=== PATIENT | female | born 1960 | race Caucasian/White ===

== ENCOUNTER 2018-01-24 08:00 | Inpatient (IN) ==
[2018-01-24] MEDS ORDERED: Ibuprofen 600 MG Tablet PO PRN (08:34)
[2018-01-24] MEDS: Docusate Sodium 100 MG Capsule PO SCH ×2 (12:06→21:00)
[2018-01-24 12:22] LABS: Hematocrit 24.7 % (35.0-46.0); Hemoglobin 7.9 gm/dL (11.6-15.3); Mean Corpuscular Hemoglobin 22.5 pg (27.0-34.0); Mean Corpuscular Volume 70.4 fL (80.0-100.0); Mean Platelet Volume 6.8 fL (7.0-11.0); Platelet Count 522 th/mm3 (150-450); Red Blood Count 3.51 mil/mm3 (4.00-5.30); Red Cell Distribution Width 20.6 % (11.6-17.2); White Blood Count 9.1 th/mm3 (4.0-11.0)
[2018-01-24] MEDS: Estrogens Conjugated Inj 25 MG Vial IV.PUSH SCH ×2 (15:22→18:29)
[2018-01-24] MEDS: Acetaminophen 325 MG Tablet PO PRN ×2 (15:31→19:57)
--- NOTE | 2018-01-24 17:34 | P.HPOB ---
History of Present Illness Primary Care Physician: UNKNOWN History of Present Illness: 57 yo WF here today For preoperative admission due to severe anemia with plans total laparoscopic hysterectomy, bilateral salpingo-oophorectomy, possible abdominal hysterectomy and cystoscopy on 01/25/2018 for anemia, AUB, fibroids. Other than fatigue patient is asymptomatic. No heavy active bleeding. - Inpatient Certification I certify that the inpatient services were ordered in accordance with Medicare regulations governing the order. This includes certification that hospital inpatient services are reasonable and necessary and in the case of services not specified as inpatient-only under 42 CFR 419.22(n), that they are appropriately provided as inpatient services in accordance to with the 2-midnight benchmark under 43 CFR 412.3(e) Estimated Total Length of Stay (Days): 2 Plans for Post Hospital Care: Home [facility] - History History Provided By: Patient - Tobacco History Second Hand Smoke Exposure: No Smoking Status: Former smoker - Alcohol History How Often Do You Have a Drink Containing Alcohol: Monthly or less - Substance Use History Substance History: No History of Abuse - Immunization History Hx Influenza Vaccine This Season: No Medications and Allergies Active Medications: Active Medications Acetaminophen (Tylenol) 650 mg PO UNSCH PRN PRN Reason: PRIOR TO BLOOD ADMINISTRATION Stop: 01/24/18 23:59 Last Admin: 01/24/18 15:31 Dose: 650 mg Diphenhydramine HCl (Benadryl) 25 mg PO UNSCH PRN PRN Reason: PRIOR TO BLOOD ADMINISTRATION Stop: 01/24/18 23:59 Last Admin: 01/24/18 15:30 Dose: 25 mg Docusate Sodium (Colace) 100 mg PO BID [facility] Last Admin: 01/24/18 12:06 Dose: 100 mg Lactated Ringer's (Lr 1000 Ml Inj) 1,000 mls @ 125 mls/hr IV.CONT .Q8H [facility] Last Admin: 01/24/18 12:05 Dose: 125 mls/hr Ibuprofen (Motrin) 600 mg PO Q6H PRN PRN Reason: Pain 1-10 And/Or Fever >101 F Medroxyprogesterone Acetate (Provera) 10 mg PO BID [facility] Last Admin: 01/24/18 12:06 Dose: 10 mg Ondansetron HCl (Zofran Odt) 4 mg PO Q6H PRN PRN Reason: NAUSEA OR VOMITING Ondansetron HCl (Zofran Inj) 4 mg IV.PUSH Q6H PRN PRN Reason: NAUSEA OR VOMITING Sodium Chloride (Ns Flush) 2 ml IV.FLUSH BID [facility] Last Admin: 01/24/18 12:06 Dose: 2 ml Sodium Chloride (Ns Flush) 2 ml IV.FLUSH PRN PRN PRN Reason: FLUSH AFTER USING IV ACCESS Zolpidem Tartrate (Ambien) 5 mg PO HS PRN PRN Reason: INSOMNIA Allergies Allergy/AdvReac Type Severity Reaction Status Date / Time No Known Allergies Allergy Unverified 01/24/18 08:34 Exam Vital signs: Vital Signs 01/24/18 16:06 01/24/18 16:24 Temperature 98.1 F 98.6 F Pulse Rate 74 72 Respiratory Rate 18 16 Blood Pressure 139/71 121/68 Intake & Output 01/23/18 01/24/18 01/24/18 18:59 06:59 18:59 Intake Total 0 / 0 Balance 0 / 0 Intake: Intake (Blood Product) Amt 0 / 0 Rbc As-3 Leukoreduced Unit 0 / 0 [id number] Narrative: Deferred today, see Encounter note from her preoperative visit. Results - Labs CBC & Chem 7: 01/24/18 11:50 Labs: Laboratory Results - last 24 hr 01/24/18 01/24/18 11:50 11:50 WBC 9.1 RBC 3.51 L Hgb 7.9 L Hct 24.7 L MCV 70.4 L MCH 22.5 L MCHC 32.0 RDW 20.6 H Plt Count 522 H MPV 6.8 L Blood Type O Positive Blood Type Recheck Required Antibody Screen Negative MTS Gel Crossmatch See Detail Bld Prod Order Comment Caprini VTE Risk Assessment Caprini VTE Risk Assessment: No/Low Risk (score <= 1) Caprini Risk Assessment Model: Point Value = 1 Point Value = 2 Point Value = 3 Point Value = 5 Age 41-60 Minor surgery BMI > 25 kg/m2 Swollen legs Varicose veins or History of unexplained or recurrent spontaneous Oral contraceptives or hormone replacement Sepsis (< 1 month) Serious lung disease, including pneumonia (< 1 month) Abnormal pulmonary function Acute myocardial infarction Congestive heart failure (< 1 month) History of inflammatory bowel disease Medical patient at bed rest Age 61-74 Arthroscopic surgery Major open surgery (> 45 min) Laparoscopic surgery (> 45 min) Malignancy Confined to bed (> 72 hours) Immobilizing plaster cast Central venous access Age >= 75 History of VTE Family history of VTE Factor V Leiden Prothrombin [id number] Lupus anticoagulant Anticardiolipin antibodies Elevated serum homocysteine Heparin-induced thrombocytopenia Other congenital or acquired thrombophilia Stroke (< 1 month) Elective arthroplasty Hip, pelvis, or leg fracture Acute spinal cord injury (< 1 month) Prophylaxis Regimen: Total Risk Factor Score Risk Level Prophylaxis Regimen 0-1 Low Early ambulation 2 Moderate Order ONE of the following: *Sequential Compression Device (SCD) *Heparin 5000 units SQ BID 3-4 Higher Order ONE of the following medications: *Heparin 5000 units SQ TID *Enoxaparin/Lovenox 40 mg SQ daily (WT < 150 kg, CrCl > 30 mL/min) *Enoxaparin/Lovenox 30 mg SQ daily (WT < 150 kg, CrCl > 10-29 mL/min) *Enoxaparin/Lovenox 30 mg SQ BID (WT < 150 kg, CrCl > 30 mL/min) AND/OR *Sequential Compression Device (SCD) 5 or more Highest Order ONE of the following medications: *Heparin 5000 units SQ TID (Preferred with Epidurals) *Enoxaparin/Lovenox 40 mg SQ daily (WT < 150 kg, CrCl > 30 mL/min) *Enoxaparin/Lovenox 30 mg SQ daily (WT < 150 kg, CrCl > 10-29 mL/min) *Enoxaparin/Lovenox 30 mg SQ BID (WT < 150 kg, CrCl > 30 mL/min) AND *Sequential Compression Device (SCD) Assessment and Plan - Plan 1. Iron deficiency anemia/abnormal uterine bleeding/fibroid uterus: Patient to collect CBC, type and cross 4 units, transfuse 2 and repeat CBC following 2nd unit. May need additional RBCs or other blood products. Plan is to proceed with hysterectomy tomorrow morning. Patient nothing by mouth at midnight.
[2018-01-24] MEDS ORDERED: Gabapentin 300 MG Capsule PO SCH (18:00)
[2018-01-24] MEDS ORDERED: ceFAZolin 2 GM Premix Inj 2 GM/50 ML PIGGYBACK IV.SIG SCH (18:00)
[2018-01-24] MEDS ORDERED: Iron Sucrose Inj 200 MG in Sodium Chlor 0.9% Inj 100 ML IV.SIG ONE ×2 (18:00→23:00)
--- NOTE | 2018-01-24 19:35 | P.OBGPN ---
S: Doing well, minimal to moderate vaginal bleeding, feels less dizzy, no chest pain. A/P: 1. Fe Def anemia / HMB / fibroid uterus, AUB:T&C x4, on 1st of 2 units PRBCs, late to start due to difficulty with IV access, may need more reliable IV access for surgery, will discuss with anesthesia tomorrow AM. Will check CBC after 2nd unit, if < 9 then transfuse additional unit, will give IV iron in addition. Repeat CBC and coags in AM. NPO at midnight, begin LR to follow PRBCs. Plan at this time is for hysterectomy tomorrow AM. - Continue home Provera 10 BID (notified by nursing received IV premarin, this was miscommunication from my office, this should not have happened, informed nursing to d/c this medication) 2. Hypothyroidism: continue home meds
[2018-01-24] MEDS ORDERED: Zolpidem Tartrate 5 MG Tablet PO PRN (21:00)
[2018-01-25 02:49] LABS: Baso # (Auto) 0.1 th/mm3 (0.0-0.2); Eos # (Auto) 0.5 th/mm3 (0.0-0.4); Eos % (Auto) 4.3 % (0.0-4.0); Hematocrit 28.4 % (35.0-46.0); Hemoglobin 9.6 gm/dL (11.6-15.3); Lymph # (Auto) 1.3 th/mm3 (1.0-4.8); Lymph % (Auto) 12.2 % (9.0-44.0); Mean Corpuscular HGB Conc 33.7 % (32.0-36.0); Mean Corpuscular Hemoglobin 24.6 pg (27.0-34.0); Mean Corpuscular Volume 73.2 fL (80.0-100.0); Mean Platelet Volume 6.6 fL (7.0-11.0); Mono # (Auto) 0.7 th/mm3 (0.0-0.9); Mono % (Auto) 6.5 % (0.0-8.0); Neut # (Auto) 8.1 th/mm3 (1.8-7.7); Platelet Count 465 th/mm3 (150-450); Red Blood Count 3.88 mil/mm3 (4.00-5.30); Red Cell Distribution Width 22.5 % (11.6-17.2); White Blood Count 10.6 th/mm3 (4.0-11.0)
[2018-01-25 06:14] LABS: Hematocrit 29.5 % (35.0-46.0); Hemoglobin 9.6 gm/dL (11.6-15.3); Mean Corpuscular HGB Conc 32.4 % (32.0-36.0); Mean Corpuscular Hemoglobin 24.2 pg (27.0-34.0); Mean Corpuscular Volume 74.7 fL (80.0-100.0); Mean Platelet Volume 6.7 fL (7.0-11.0); Platelet Count 479 th/mm3 (150-450); Red Blood Count 3.95 mil/mm3 (4.00-5.30); Red Cell Distribution Width 22.4 % (11.6-17.2); White Blood Count 9.9 th/mm3 (4.0-11.0)
[2018-01-25 06:21] LABS: Activated Partial Thrombo Time 29.9 sec (23.4-31.7); INR 1.1 Ratio; Prothrombin Time 10.7 sec (9.8-11.6)
[2018-01-25] MEDS: Levothyroxine 75 MCG Tablet PO SCH (07:22)
--- NOTE | 2018-01-25 08:02 | P.OBGPN ---
S: Doing well, minimal to moderate vaginal bleeding, f\\ feels well this morning after transfusion A/P: 1. Fe Def anemia / HMB / fibroid uterus / AUB: Status post 2 units, appropriate rise in hemoglobin, plan to proceed with hysterectomy today. Has 2 additional units available if needed. - may need more reliable IV access for surgery, will discuss with anesthesia 2. Hypothyroidism / HTN: continue home meds
[2018-01-25] MEDS: Triamterene/HCTZ 37.5 MG/25 MG Tablet PO SCH (08:39)
[2018-01-25] MEDS: Docusate Sodium 100 MG Capsule PO SCH ×2 (08:39→21:31)
[2018-01-25] MEDS ORDERED: Scopalamine 1.5 MG Patch T-DERMAL ONE ×2 (09:57→14:00)
[2018-01-25] MEDS ORDERED: Sodium Chlor 0.9% Inj 500 ML IV.CONT ONE (10:00)
[2018-01-25] MEDS ORDERED: Metoprolol Tartrate 25 MG Tablet PO ONE (10:00)
[2018-01-25] MEDS ORDERED: Chlorhexidine Gluconate 2% 1 Pack (2 Cloths) TOPICAL ONE (10:00)
[2018-01-25] MEDS ORDERED: EPINEPHRINE INFILTRATN SCH ×2 (11:15→11:30)
[2018-01-25] MEDS ORDERED: LIDOCAINE INFILTRATN SCH ×2 (11:15→11:30)
[2018-01-25] MEDS ORDERED: Acetaminophen 325 MG Tablet PO PRN (13:06)
[2018-01-25] MEDS ORDERED: Simethicone 80 MG Chew Tablet PO PRN (13:06)
--- NOTE | 2018-01-25 13:28 | P.OP ---
Surgeon: Nish Crouch MD Operation and Findings: Preoperative diagnosis: 1. Iron deficiency anemia 2. Heavy and abnormal uterine bleeding 3. Fibroid uterus 4. Perineal skin tag Postop diagnosis 1. Same as above status post below procedure Procedure 1. Total laparoscopic hysterectomy, bilateral salpingo-oophorectomy. 2. Diagnostic cystoscopy 3. Removal of right perineal skin tag 4. Repair of superficial vaginal lacerations Surgeon Dr. Nish Crouch Therapeutic Activities Services Worker: Dr. Pat Quintana prescribed and assisting throughout the case due to its difficulty, and [facility] [facility] staff scrubbed and assisted as usual. Findings: 1. Normal external female genitalia vagina and cervix. Normal appearing but enlarged 8-10-week size uterus. After bisecting specimen following removal, there was a large 2-3cm type 0 intracavitary fundal fibroid. 2. Normal ovaries and previously surgically ligated fallopian tubes. The pelvis and abdomen were free of adhesions, moderately dense bladder scarring to the lower uterine segment and cervix. 3. Normal diagnostic cystoscopy, bilateral ureteral reflux appreciated. 4. 1 cm pedunculated right perineal skin tag. Anesthesia: General endotracheal Specimen: Uterus, cervix, bilateral fallopian tubes and ovaries, together, routine. Skin tag to disposal. Estimated blood loss: 150 cc Fluid replacement: 1300 cc lactated Ringer's Urine output: 300 cc clear Via Paez DVT prophylaxis: Sequential compression devices throughout the case Antibiotics: 3 g Ancef preoperatively Counts: correct x2 Time out done: yes Disposition: Stable to PACU then to floor for overnight stay Indications: Patient is a 7-year-old female who was seen in outpatient setting for heavy menstrual bleeding and anemia, she had already received 2 transfusions within the past year due to her bleeding. She had been worked up prior to seeing me with a normal D&C and an ultrasound showing an enlarged fibroid uterus. We discussed all options with the risks and benefits and we decided and agreed upon the above procedure. Please see H&P and consents for further details. Description of procedure: The patient was taken to the operating room and placed under general anesthesia she was positioned in lithotomy position with Tanner stirrups with both arms tucked. The abdomen and vagina were prepped and draped in sterile fashion. A Paez was inserted. Uterus was sounded to 12 cm cm, a medium V care manipulator was placed with a suture applied to the cervix for traction. Attention was turned to the abdomen. A total of 10 cc of 1% lidocaine with epinephrine was used for each port site. A 5 mm umbilical incision was made and with direct optical view technique the abdomen was entered and insufflated with CO2 gas, the patient was placed in Trendelenburg. 2 left lower quadrant and one right lower quadrant 5 mm trocars were inserted with direct intra abdominal visualization. A survey was performed with the above findings. A bilateral salpingo-oophorectomy was performed by clamping, desiccating and transecting through the IP ligament away from the pelvic sidewall and ureter bilaterally using the Enseal vessel sealing device and the specimens were removed at the end of the case through the vagina. The left round ligament was transected and the anterior broad ligament opened and a bladder flap was developed with the Enseal and the same was done on the contralateral side. The posterior broad ligament was opened and the uterine arteries were skeletonized. The uterine arteries were clamped desiccated and transected with the Enseal bilaterally. Using monopolar energy a colpotomy was made The uterus was removed vaginally. The vaginal cuff was closed with running 2-0 unidirectional strata fix suture incorporating the uterosacrals for support. The abdomen was irrigated and the surgical sites were found to be hemostatic. A cystoscopy was performed with a 30 laparoscope using normal saline. No damage to the bladder was appreciated and bilateral reflux was noted. The Paez was left removed the abdomen was desufflated and the trocars removed. The skin was closed with 4-0 Monocryl and skin glue applied overlying. There were superficial abrasions and small lacerations to the distal vagina that were repaired with running 3-0 Vicryl. There was a pedunculated right perineal skin tag that was excised after the base was injected with 1-2 cc of 1 % lidocaine with epinephrine. The 1 cm defect was closed with buried interrupted 3-0 Monocryl suture with skin glue applied over. The patient was awoken from anesthesia and transferred to PACU.
[2018-01-25] MEDS ORDERED: [UNRECOGNIZED DRUG - OTHER] T-DERMAL SCH (14:00)
[2018-01-25] MEDS ORDERED: Ketorolac Inj 30 MG/ML (IVP) Vial IV.PUSH ONE (14:00)
[2018-01-25] MEDS ORDERED: *morphine SULFATE 4 MG/ML PERIprocedure ONLY ONE (14:22)
[2018-01-25] MEDS ORDERED: *Ondansetron Inj 4 MG/2 ML Vial PERIprocedural Use ONLY ONE (14:27)
[2018-01-25] MEDS: Iron Sucrose Inj 200 MG in Sodium Chlor 0.9% Inj 100 ML IV.SIG SCH (18:21)
[2018-01-25] MEDS: Gabapentin 100 MG Capsule PO SCH (18:22)
[2018-01-25] MEDS: Ketorolac Inj 30 MG/ML (IVP) Vial IV.PUSH SCH (19:30)
[2018-01-26] MEDS: Ketorolac Inj 30 MG/ML (IVP) Vial IV.PUSH SCH ×2 (01:50→08:21)
[2018-01-26 05:53] LABS: Baso # (Auto) 0.1 th/mm3 (0.0-0.2); Eos # (Auto) 0.1 th/mm3 (0.0-0.4); Eos % (Auto) 0.5 % (0.0-4.0); Hematocrit 27.2 % (35.0-46.0); Hemoglobin 8.9 gm/dL (11.6-15.3); Lymph # (Auto) 1.5 th/mm3 (1.0-4.8); Lymph % (Auto) 10.4 % (9.0-44.0); Mean Corpuscular HGB Conc 32.8 % (32.0-36.0); Mean Corpuscular Hemoglobin 24.2 pg (27.0-34.0); Mean Corpuscular Volume 73.7 fL (80.0-100.0); Mean Platelet Volume 6.7 fL (7.0-11.0); Mono # (Auto) 0.9 th/mm3 (0.0-0.9); Mono % (Auto) 6.6 % (0.0-8.0); Neut # (Auto) 11.6 th/mm3 (1.8-7.7); Neut % (Auto) 81.5 % (16.0-70.0); Platelet Count 479 th/mm3 (150-450); Red Blood Count 3.69 mil/mm3 (4.00-5.30); Red Cell Distribution Width 22.7 % (11.6-17.2); White Blood Count 14.2 th/mm3 (4.0-11.0)
[2018-01-26] MEDS: Levothyroxine 75 MCG Tablet PO SCH (05:53)
--- NOTE | 2018-01-26 08:03 | P.PNOB ---
Assessment and Plan - Postoperative Procedures Operation Date: 01/25/18 10:00 Actual Procedures Side Surgeon p TOTAL LAPAROSCOPIC HYSTERECTOMY, BILATERAL SALPINGO OOPHORECTOMY, EXAM UNDER ANESTHESIA, diagnostic cystoscopy, removal right perineal skin tag Not Applicable Nish Crouch MD 57-year-old status post TLH, BSO, cystoscopy, perineal skin tag removal for anemia, fibroid uterus. 1. Postoperative day #1: Afebrile, vital signs stable, a.m. hemoglobin appropriate, meeting milestones, discharge home today, discussed postoperative precautions expectations and follow-up. 2. Anemia: Status post IV iron x2 and pre op transfusion 2 units PRBCs, continue outpatient iron and Colace for constipation prevention. 3. Hypothyroidism/hypertension: May resume home medications. Postoperative day: 1 - Time Spent With Patient Total time spent is greater than 50% in coordination of care (as documented) at patient's floor/unit and/or counseling patient: Subjective Interval history: Doing well, ambulating without difficulty, voiding without issues, no vaginal bleeding, tolerating diet without nausea or vomiting. Positive bowel movement and flatus. Pain controlled Physical Exam Vital signs: Temp Pulse Resp BP Pulse Ox 98.1 F 59 L 16 131/67 96 01/26/18 04:00 01/26/18 04:00 01/26/18 04:00 01/26/18 04:00 01/26/18 04:00 - Constitutional no acute distress - Routine Respiratory Exam Present: CTA bilaterally - Routine Cardiovascular Exam Present: RRR - Routine Abdominal Exam Present: soft Comments: Incisions clean dry and intact - Urinary Catheter Management Indwelling Urethral Catheter Cath placed during this visit: yes Urethral indwelling: No Insertion date: 01/25/18 Insertion time: 10:40 Results - Labs CBC & Chem 7: 01/26/18 05:45 Labs: Laboratory Results - last 24 hr 01/26/18 05:45 WBC 14.2 H RBC 3.69 L Hgb 8.9 L Hct 27.2 L MCV 73.7 L MCH 24.2 L MCHC 32.8 RDW 22.7 H Plt Count 479 H MPV 6.7 L Neut % (Auto) 81.5 H Lymph % (Auto) 10.4 [place] % (Auto) 6.6 Eos % (Auto) 0.5 Baso % (Auto) 1.0 Neut # (Auto) 11.6 H Lymph # (Auto) 1.5 [place] # (Auto) 0.9 Eos # (Auto) 0.1 Baso # (Auto) 0.1 WBC Differential . Differential Comment Auto diff final
--- NOTE | 2018-01-26 08:08 | P.DS ---
Date of admission: 01/24/18 08:20 Primary care physician: UNKNOWN Brief History from admission: 57 female who has been followed as outpatient in disposition for hysterectomy however she was found to be significantly anemic preoperatively and required admission for transfusion, she received 2 units of blood prior to her surgery, she underwent a TLH, BSO, cystoscopy on 01/25/2018, she was meeting all of her postoperative milestones on postoperative day #1 and was discharged home. DS: Medications - Discharge Medications Prescriptions: docusate sodium [Colace] 100 mg PO BID 7 Days #14 cap ferrous sulfate [Feosol] 325 mg PO DAILY 30 Days #30 tab oxycodone-acetaminophen [Percocet] 1 tab PO Q4-6H PRN #15 tab PRN Reason: Breakthrough Pain DS: Summary Hospital Course: See brief history - Time Spent with Patient Total time spent providing and/or coordinating discharge services: Less than 30 minutes - Quality: VTE Deep Vein Thrombosis/Pulmonary Embolism Present on Admission: No Exam Vital signs: Vital Signs 01/25/18 13:12 01/25/18 13:15 01/25/18 13:30 Temperature 98 F Pulse Rate 72 67 51 L Respiratory Rate 14 13 17 Blood Pressure 167/77 H 171/79 H 154/67 H Pulse Oximetry 97 98 98 01/25/18 13:45 01/25/18 14:00 01/25/18 14:15 Temperature Pulse Rate 53 L 49 L 53 L Respiratory Rate 18 18 19 Blood Pressure 160/73 H 141/65 H 142/57 H Pulse Oximetry 99 98 97 01/25/18 14:30 01/25/18 14:45 01/25/18 16:00 Temperature 97.5 F L 97.5 F L 98.3 F Pulse Rate 55 L 53 L 64 Respiratory Rate 18 16 18 Blood Pressure 124/60 133/62 136/69 Pulse Oximetry 97 95 01/25/18 20:00 01/25/18 23:54 01/26/18 04:00 Temperature 97.9 F 98.1 F Pulse Rate 74 69 59 L Respiratory Rate 18 18 16 Blood Pressure 123/70 113/64 131/67 Pulse Oximetry 95 97 96 Intake & Output 01/25/18 01/26/18 01/26/18 18:59 06:59 18:59 Intake Total 2400 / 2400 1000 / 1000 Output Total 450 / 450 1000 / 1000 Balance 1950 / 1950 0 / 0 Intake: IV 1050 / 1050 1000 / 1000 LR 1000 mL Inj 1,000 ML @ 125 1000 / 1000 1000 / 1000 mls/hr IV.CONT .Q8H [facility] Rx#: [id number] Ancef 2 GM Premix Inj 2 gm In 50 / 50 50 ml @ 100 mls/hr IV.SIG [facility] Rx#:[id number] Oral 0 / 0 Anesthesia Amount 1350 / 1350 Output: Urine 0 / 0 1000 / 1000 Estimated Blood Loss 150 / 150 Urine Amount (Catheter) 300 / 300 Indwelling Urethral Catheter 300 / 300 Results Procedures completed during hospitalization: Total laparoscopic hysterectomy, bilateral salpingo-oophorectomy, cystoscopy, perineal skin tag removal Pending studies at discharge: Pending at discharge 01/25/18 14:20 Surgical [PTH] Routine Labs on day of discharge: Labs from last 24 hours 01/26/18 05:45 WBC 14.2 H RBC 3.69 L Hgb 8.9 L Hct 27.2 L MCV 73.7 L MCH 24.2 L MCHC 32.8 RDW 22.7 H Plt Count 479 H MPV 6.7 L Neut % (Auto) 81.5 H Lymph % (Auto) 10.4 [place] % (Auto) 6.6 Eos % (Auto) 0.5 Baso % (Auto) 1.0 Neut # (Auto) 11.6 H Lymph # (Auto) 1.5 [place] # (Auto) 0.9 Eos # (Auto) 0.1 Baso # (Auto) 0.1 WBC Differential . Differential Comment Auto diff final Discharge Plan - Discharge Disposition Patient Disposition: 01 Discharge Home - Discharge Condition Condition: Good - Discharge Order Discharge Orders: Discharge Order (Routine); Ordered 01/26/18 Ordered By: Nish Crouch - Physicians Team Primary Care Provider: UNKNOWN, Attending Provider: Nish Crouch - Rxs /Orders / Referrals /Forms Prescriptions: New docusate sodium [Colace] 100 mg Capsule 100 mg PO BID 7 Days Qty: 14 RF: 0 ferrous sulfate [Feosol] 325 mg (65 mg iron) Tablet 325 mg PO DAILY 30 Days Qty: 30 RF: 1 oxycodone-acetaminophen [Percocet] 5-325 mg Tablet 1 tab PO Q4-6H PRN (Reason: Breakthrough Pain) Qty: 15 RF: 0 Referrals: UNKNOWN, [Primary Care Provider] - See Instructions - Discharge Instructions Patient Printed Instructions: Laparoscopic Hysterectomy (DC)
[2018-01-26] MEDS: Docusate Sodium 100 MG Capsule PO SCH (08:22)
[2018-01-26] MEDS: Gabapentin 100 MG Capsule PO SCH (08:22)
[2018-01-26] MEDS: Triamterene/HCTZ 37.5 MG/25 MG Tablet PO SCH (08:22)
[2018-01-26] MEDS: Iron Sucrose Inj 200 MG in Sodium Chlor 0.9% Inj 100 ML IV.SIG SCH (08:23)
== END 2018-01-26 13:00 | disposition home or self-care (01) ==
LOC: H1EA 08:20
PROVIDERS: ADMIT Obstetrics & Gynecology; ATTEND Obstetrics & Gynecology